=== PATIENT | male | born 1965 | race Caucasian/White ===

== ENCOUNTER 2020-04-04 11:54 | Emergency (ER) | payer BC ==
[2020-04-04] MEDS ORDERED: KETOROLAC 30 MG/ML 1 ML VIAL IVP STA (12:40)
[2020-04-04] MEDS ORDERED: SODIUM CHLORIDE 0.9% 1,000 ML IV STA (12:40)
[2020-04-04] MEDS ORDERED: ONDANSETRON 4 MG/2 ML VIAL IVP STA (12:40)
--- NOTE | 2020-04-04 13:06 | ED ---
Abdominal Pain HPI - General Chief Complaint: Abdominal Pain Stated Complaint: abd pain Time Seen by Provider: 04/04/20 12:25 Source: patient Mode of arrival: ambulatory Limitations: no limitations - History of Present Illness Initial Comments: Patient is a 54-year-old male presenting to the emergency Department with complaints of abdominal pain that started this morning. Patient states he describes the pain as around his belly button, very sharp and it is becoming more constant. Patient states she does have a history of kidney stones, no abdominal surgeries. Patient does admit to mild nausea, one episode of vomiting. He states it hurts to stand up straight. He states this feels different than his normal kidney stones. He denies any urinary complaints, hematuria. He states he's been having regular bowel movements. He denies any fever or chills. He denies chest pain or shortness of breath. He has no further complaints at this time. Upon arrival to the ER, his vital signs are stable. - Related Data Previous Rx's Medication Instructions Recorded Ketorolac [Toradol] 10 mg PO Q8HR PRN #10 tab 04/04/20 Metoclopramide [Reglan] 10 mg PO TID PRN #10 tab 04/04/20 Allergies Allergy/AdvReac Type Severity Reaction Status Date / Time No Known Allergies Allergy Verified 04/04/20 12:04 Review of Systems ROS Statement: Those systems with pertinent positive or pertinent negative responses have been documented in the HPI. ROS Other: All systems not noted in ROS Statement are negative. Past Medical History Past Medical History: No Reported History History of Any Multi-Drug Resistant Organisms: None Reported Additional Past Surgical History / Comment(s): Rotator Cuff Surgery Past Psychological History: No Psychological Hx Reported Smoking Status: Never smoker Past Alcohol Use History: None Reported Past Drug Use History: None Reported General Exam - General Exam Comments Initial Comments: GENERAL: Patient is well-developed and well-nourished. Patient is nontoxic and in no acute distress, but does appear uncomfortable, sitting forward, curled up. HEAD: Atraumatic, normocephalic. EYES: Pupils equal round and reactive to light, extraocular movements intact, sclera anicteric, conjunctiva are normal. Eyelids were unremarkable. ENT: TMs normal, nares patent, oropharynx clear without exudates. Moist mucous membranes. NECK: Normal range of motion, supple without lymphadenopathy or JVD. LUNGS: Unlabored respirations. Breath sounds clear to auscultation bilaterally and equal. No wheezes rales or rhonchi. HEART: Regular rate and rhythm without murmurs, rubs or gallops. ABDOMEN: Tender to palpation of the umbilical region. No flank pain. Soft, normoactive bowel sounds. No guarding, no rebound. No masses appreciated. : Deferred MUSCULOSKELETAL: Normal extremities with adequate strength and normal range of motion, no pitting or edema. No clubbing or cyanosis. NEUROLOGICAL: Patient is alert and oriented x 3. Motor and sensory are also intact. Normal speech, normal gait. Symmetrical smile. PSYCH: Normal mood, normal affect. SKIN: Warm, Dry, normal turgor, no rashes or lesions noted. Limitations: no limitations Course Vital Signs 04/04/20 04/04/20 04/04/20 12:00 13:15 14:51 Temperature 98.1 F 97.8 F Pulse Rate 75 69 78 Respiratory 16 18 18 Rate Blood Pressure 158/95 150/93 166/98 O2 Sat by Pulse 98 96 97 Oximetry Medical Decision Making - Medical Decision Making Patient is a 54-year-old male here for mid abdominal pain since this morning. He does have a history of kidney stones but feels like this feels different. His vital signs are stable, afebrile. Lab work shows no acute abnormalities, lactic acid is normal, lipase is normal. Urine shows no evidence of infection or hematuria. Computed tomography scan shows no evidence of a kidney stone. There are some dilated loops of small bowel, no transition point is seen. This could be related to an ileus. No suspicion for appendicitis. A partial mechanical small bowel protraction is not completely ruled out. Patient was given some fluids, Zofran and Toradol. Patient reports improvement in his symptoms. He is able to sit normally, walk around as normal. I did discuss these findings with the patient. I did recommend admission for possible small bowel dissection, however patient declined this. He states he is feeling much better and rather go home and observe his symptoms. We discussed returning to the ER if his pain increases, vomiting, not passing gas. Patient is agreement with this plan of care. He is stable for discharge. Case discussed with Dr. Noble. - Lab Data Result diagrams: 04/04/20 13:05 04/04/20 13:07 Lab Results 04/04/20 04/04/20 04/04/20 Range/Units 13:05 13:07 13:07 WBC 8.2 (3.8-10.6) k/uL RBC 5.86 (4.30-5.90) m/uL Hgb 16.5 (13.0-17.5) gm/dL Hct 51.0 (39.0-53.0) % MCV 87.2 (80.0-100.0) fL MCH 28.2 (25.0-35.0) pg MCHC 32.3 (31.0-37.0) g/dL RDW 13.0 (11.5-15.5) % Plt Count 221 (150-450) k/uL Neutrophils % 87 % Lymphocytes % 8 % Monocytes % 3 % Eosinophils % 1 % Basophils % 0 % Neutrophils # 7.1 (1.3-7.7) k/uL Lymphocytes # 0.6 L (1.0-4.8) k/uL Monocytes # 0.3 (0-1.0) k/uL Eosinophils # 0.1 (0-0.7) k/uL Basophils # 0.0 (0-0.2) k/uL Sodium 139 (137-145) mmol/L Potassium 4.2 (3.5-5.1) mmol/L Chloride 102 (98-107) mmol/L Carbon Dioxide 29 (22-30) mmol/L Anion Gap 8 mmol/L BUN 17 (9-20) mg/dL Creatinine 0.88 (0.66-1.25) mg/dL Est GFR (CKD-EPI)AfAm >90 (>60 ml/min/1.73 sqM) Est GFR (CKD-EPI)NonAf >90 (>60 ml/min/1.73 sqM) Glucose 112 H (74-99) mg/dL Plasma Lactic Acid Dave (0.7-2.0) mmol/L Calcium 9.7 (8.4-10.2) mg/dL Total Bilirubin 0.9 (0.2-1.3) mg/dL AST 23 (17-59) U/L ALT 21 (4-49) U/L Alkaline Phosphatase 70 (38-126) U/L Total Protein 7.2 (6.3-8.2) g/dL Albumin 4.6 (3.5-5.0) g/dL Amylase 72 (30-110) U/L Lipase 58 (23-300) U/L Urine Color Yellow Urine Appearance Clear (Clear) Urine pH 8.5 H (5.0-8.0) Ur Specific [place] 1.023 (1.001-1.035) Urine Protein 1+ H (Negative) Urine Glucose (UA) Negative (Negative) Urine Ketones Negative (Negative) Urine Blood Negative (Negative) Urine Nitrite Negative (Negative) Urine Bilirubin Negative (Negative) Urine Urobilinogen <2.0 (<2.0) mg/dL Ur Leukocyte Esterase Negative (Negative) Urine RBC 2 (0-5) /hpf Urine WBC 1 (0-5) /hpf Ur Squamous Epith Cells <1 (0-4) /hpf Urine Mucus Occasional H (None) /hpf 04/04/20 Range/Units 13:07 WBC (3.8-10.6) k/uL RBC (4.30-5.90) m/uL Hgb (13.0-17.5) gm/dL Hct (39.0-53.0) % MCV (80.0-100.0) fL MCH (25.0-35.0) pg MCHC (31.0-37.0) g/dL RDW (11.5-15.5) % Plt Count (150-450) k/uL Neutrophils % % Lymphocytes % % Monocytes % % Eosinophils % % Basophils % % Neutrophils # (1.3-7.7) k/uL Lymphocytes # (1.0-4.8) k/uL Monocytes # (0-1.0) k/uL Eosinophils # (0-0.7) k/uL Basophils # (0-0.2) k/uL Sodium (137-145) mmol/L Potassium (3.5-5.1) mmol/L Chloride (98-107) mmol/L Carbon Dioxide (22-30) mmol/L Anion Gap mmol/L BUN (9-20) mg/dL Creatinine (0.66-1.25) mg/dL Est GFR (CKD-EPI)AfAm (>60 ml/min/1.73 sqM) Est GFR (CKD-EPI)NonAf (>60 ml/min/1.73 sqM) Glucose (74-99) mg/dL Plasma Lactic Acid Dave 0.8 (0.7-2.0) mmol/L Calcium (8.4-10.2) mg/dL Total Bilirubin (0.2-1.3) mg/dL AST (17-59) U/L ALT (4-49) U/L Alkaline Phosphatase (38-126) U/L Total Protein (6.3-8.2) g/dL Albumin (3.5-5.0) g/dL Amylase (30-110) U/L Lipase (23-300) U/L Urine Color Urine Appearance (Clear) Urine pH (5.0-8.0) Ur Specific [place] (1.001-1.035) Urine Protein (Negative) Urine Glucose (UA) (Negative) Urine Ketones (Negative) Urine Blood (Negative) Urine Nitrite (Negative) Urine Bilirubin (Negative) Urine Urobilinogen (<2.0) mg/dL Ur Leukocyte Esterase (Negative) Urine RBC (0-5) /hpf Urine WBC (0-5) /hpf Ur Squamous Epith Cells (0-4) /hpf Urine Mucus (None) /hpf Disposition Clinical Impression: Abdominal pain, Ileus, Nausea Disposition: HOME SELF-CARE Condition: Stable Instructions (If sedation given, give patient instructions): Abdominal Pain (ED) Additional Instructions: Please return to the Emergency Department if symptoms worsen or any other concerns, such as not passing gas, increase in abdominal pain, vomiting. May take Reglan as needed for nausea. As well as Toradol for pain. Prescriptions: Metoclopramide [Reglan] 10 mg PO TID PRN #10 tab PRN Reason: Nausea Ketorolac [Toradol] 10 mg PO Q8HR PRN #10 tab PRN Reason: Pain Is patient prescribed a controlled substance at d/c from ED?: No Referrals: Nonstaff,Physician [Primary Care Provider] - 1-2 days
[2020-04-04 13:25] LABS: Basophils % (A) 0 %; Eosinophils # (A) 0.1 k/uL (0-0.7); Eosinophils % (A) 1 %; HGB 16.5 gm/dL (13.0-17.5); Lymphocytes # (A) 0.6 k/uL (1.0-4.8); Lymphocytes % (A) 8 %; MCH 28.2 pg (25.0-35.0); MCHC 32.3 g/dL (31.0-37.0); MCV 87.2 fL (80.0-100.0); Mean Platelet Volume 7.5; Monocytes # (A) 0.3 k/uL (0-1.0); Monocytes % (A) 3 %; Neutrophils # (A) 7.1 k/uL (1.3-7.7); Neutrophils % (A) 87 %; Platelet Count 221 k/uL (150-450); RBC 5.86 m/uL (4.30-5.90); WBC 8.2 k/uL (3.8-10.6)
[2020-04-04 13:26] VITALS: RESP 18
[2020-04-04 13:26] LABS: Appearance,Urine Clear (Clear); Bilirubin,Urine Negative (Negative); Blood,Urine Negative (Negative); Color,Urine Yellow; Glucose,Urine (UA) Negative (Negative); Ketones,Urine Negative (Negative); Leukocyte Esterase,Urine Negative (Negative); Mucus,Urine Occasional /hpf; Nitrite,Urine Negative (Negative); PH, Urine 8.5 (5.0-8.0); Protein,Urine 1+ (Negative); RBC,Urine 2 /hpf (0-5); Specific Gravity,Urine 1.023 (1.001-1.035); Squamous Epithelial Cell,Urine <1 /hpf (0-4); Urobilinogen,Urine <2.0 mg/dL (<2.0); WBC,Urine 1 /hpf (0-5)
[2020-04-04 13:36] LABS: ALT 21 U/L (4-49); AST 23 U/L (17-59); African American GFR (CKD) >90 (>60 ml/min/1.73 sqM); Albumin 4.6 g/dL (3.5-5.0); Alkaline Phosphatase 70 U/L (38-126); Amylase 72 U/L (30-110); Anion Gap 8 mmol/L; Blood Urea Nitrogen 17 mg/dL (9-20); Calcium 9.7 mg/dL (8.4-10.2); Carbon Dioxide 29 mmol/L (22-30); Chloride 102 mmol/L (98-107); Glucose 112 mg/dL (74-99); Non-African American GFR(CKD) >90 (>60 ml/min/1.73 sqM); Potassium 4.2 mmol/L (3.5-5.1); Sodium 139 mmol/L (137-145); Total Bilirubin 0.9 mg/dL (0.2-1.3); Total Protein 7.2 g/dL (6.3-8.2)
--- NOTE | 2020-04-04 14:29 | CT ---
EXAMINATION TYPE: CT abdomen pelvis w con DATE OF EXAM: 04/04/2020 COMPARISON: None HISTORY: Abdominal pain CT DLP: 842 mGycm Automated exposure control for dose reduction was used. CONTRAST: Performed with IV Contrast, patient injected with 100 ml mL of Isovue 300. Multiple axial sections were obtained from the diaphragm to the floor the pelvis with IV contrast. The lung bases are clear. There is no pleural effusion. Heart size is normal. There is no pericardial effusion. Liver spleen stomach pancreas gallbladder appear normal. Bile ducts are not dilated. There is no adrenal mass. Kidneys show satisfactory contrast opacification. There is no hydronephrosi s. There is 2 cm cortical cyst posterior lower pole right kidney. There is no retroperitoneal adenopa thy. Ureters are not dilated. There is normal excretion on the delayed images. The bladder distends s moothly. There is small left-sided inguinal hernia containing fat. There is no evidence of pelvic mas s. There is small amount of free fluid in the pelvis. Appendix is difficult to identify. There is sandeep e fecal material in the ileum. There is distended distal small bowel up to 3 cm. The cecum is not dil ated. Terminal ileum has normal diameter. There is lumbar thoracic mild dextroscoliosis. There is multilevel spondylotic changes. The bony pelv is appears intact. Sacroiliac joints appear normal. IMPRESSION: There are some dilated loops of small bowel in the midabdomen. No transition point seen. This could r elate to ileus. Appendix is not seen. I do not suspect appendicitis. Partial mechanical small bowel o bstruction is possible.
[2020-04-04 14:54] VITALS: BP 166/98; PULSE 78; TEMP 97.8
== END 2020-04-04 15:09 | disposition home or self-care (01) ==
LOC: EC 11:54
DX: K56.7 Ileus, unspecified (principal); Z87.442 Personal history of urinary calculi
CPT/HCPCS: 36415; 80053; 82150; 83605; 83690; 85025; 81001; 74177; 99284; 96374; 96375; 96361 ×2; J2405; J1885; Q9967